=== PATIENT | female | born 1980 | race Caucasian/White ===

== ENCOUNTER → 2022-01-23 08:59 | Outpatient (BNVA) | payer MEDICAID, SELFPAY | PROVIDERS: PCP Nurse Practitioner Family; Visit Provider Internal Medicine Rheumatology | DX: M19.90 Unspecified osteoarthritis, unspecified site (principal); R76.8 Other specified abnormal immunological findings in serum; Z11.59 Encounter for screening for other viral diseases; Z79.899 Other long term (current) drug therapy; Z11.1 Encounter for screening for respiratory tuberculosis | CPT/HCPCS: 36415; 73130; 73630; 80076; 82306; 82550; 82565; 83735; 84132; 85025; 85651; 86140; 86160; 86162; 86200; 86235; 86255; 86376; 86431; 86480; 86704; 86800; 86803; 87340; 87522; 99204 ==

== ENCOUNTER 2022-02-15 10:36 | Oncology outpatient (recurring) (ONCR) | payer MEDICAID, SELFPAY ==
[2022-02-15 12:57] LABS: Basophils # 0.2 10^3/uL (0.0-0.1); Eosinophils # 0.2 10^3/uL (0.0-0.8); Eosinophils % 1.2 %; Hematocrit 40.9 % (37.0-47.0); Hemoglobin 13.5 g/dL (11.5-15.3); Lymphocytes # 6.2 10^3/uL (0.8-4.8); Lymphocytes % 39.6 %; Mean Corpuscular Hemoglobin 30.7 pg (28.0-34.0); Mean Platelet Volume 8.8 fL (7.4-10.4); Monocytes % 6.3 %; Neutrophils # 8.11 10^3/uL (1.8-7.7); Neutrophils % 51.6 %; Nucleated Red Blood Cells % 0 %; Platelet Count 587 10^3/cmm (130-400); Red Cell Distribution Width 14.8 % (12.1-15.1); White Blood Count 15.7 10^3/uL (4.0-10.0)
[2022-02-15 13:17] LABS: Slide Review Slide Review Perform
[2022-02-15 13:23] LABS: LAB Peripheral Smear Sent for Review
[2022-02-15 13:31] LABS: Alanine Aminotransferase 11 U/L (0-33); Albumin Level 3.8 g/dL (3.5-5.2); Alkaline Phosphatase 130 U/L (35-105); Anion Gap 14.1 (5-19); Aspartate Amino Transferase 22 U/L (0-32); Blood Urea Nitrogen 5 mg/dL (6-20); Calcium 8.4 mg/dL (8.5-10.5); Carbon Dioxide 23 mmol/L (22-29); Chloride 102 mmol/L (98-107); Globulin 2.9 g/dL (1.3-4.6); Glomerular Filtration Rate 92.2 mL/min (90-130); Glucose 97 mg/dL (65-115); Lactate Dehydrogenase 171 U/L (135-214); Osmolality Calculated 279 mOsm/kg (285-295); Potassium 3.1 mmol/L (3.5-5.1); Sodium 136 mmol/L (136-145); Total Bilirubin 0.2 mg/dL (0.15-1.2); Total Protein 6.7 g/dL (6.6-8.7); Vitamin B12 430 pg/mL (232-1245)
[2022-02-24 18:12] LABS: CALR Exon 9 Mutation NOT DETECTED (NOT DETECTED); CSF3R Exon 14/17 Mutation NOT DETECTED (NOT DETECTED); JAK2 Exon 12 Mutation NOT DETECTED (NOT DETECTED); JAK2 V617 Block Specimen ID NG; JAK2 V617 Clinical Indication NG; JAK2 V617 Mutation NOT DETECTED (NOT DETECTED); JAK2 V617 Specimen Source NG; MPL Exon 12 Mutation NOT DETECTED (NOT DETECTED)
== END 2022-03-09 23:59 | disposition home or self-care (01) ==
PROVIDERS: PCP Nurse Practitioner Family; Visit Provider Internal Medicine Medical Oncology
DX: D72.829 Elevated white blood cell count, unspecified (principal); D75.839 Thrombocytosis, unspecified; R53.83 Other fatigue
CPT/HCPCS: 36415; 80053; 81270; 82607; 83615; 84443; 85025; 88374

== ENCOUNTER 2022-03-14 12:26 | Oncology outpatient (recurring) (ONCR) | payer MEDICAID, SELFPAY ==
[2022-03-14 13:22] LABS: Basophils # 0.1 10^3/uL (0.0-0.1); Basophils % 0.4 %; Eosinophils % 0.3 %; Hematocrit 37.6 % (37.0-47.0); Hemoglobin 12.5 g/dL (11.5-15.3); Lymphocytes # 2.7 10^3/uL (0.8-4.8); Lymphocytes % 23.5 %; Mean Corpuscular HGB Conc 33.2 g/dL (30.0-36.0); Mean Corpuscular Volume 93.3 fl (81-99); Mean Platelet Volume 10.2 fL (7.4-10.4); Monocytes # 1.1 10^3/uL (0.2-0.9); Monocytes % 9.9 %; Neutrophils # 7.51 10^3/uL (1.8-7.7); Neutrophils % 65.6 %; Nucleated Red Blood Cells % 0 %; Platelet Count 277 10^3/cmm (130-400); Red Blood Count 4.03 10^6/uL (4.1-5.3); Red Cell Distribution Width 18.4 % (12.1-15.1); White Blood Count 11.5 10^3/uL (4.0-10.0)
[2022-03-14 13:25] LABS: Erythrocyte Sedimentation Rate 5 mm/hr (0-15)
[2022-03-14 13:42] LABS: Alanine Aminotransferase 8 U/L (0-33); Albumin Level 2.9 g/dL (3.5-5.2); Alkaline Phosphatase 266 U/L (35-105); Anion Gap 13.6 (5-19); Aspartate Amino Transferase 31 U/L (0-32); Blood Urea Nitrogen 6 mg/dL (6-20); Calcium 7.8 mg/dL (8.5-10.5); Carbon Dioxide 29 mmol/L (22-29); Chloride 98 mmol/L (98-107); Globulin 3.1 g/dL (1.3-4.6); Glomerular Filtration Rate 91.8 mL/min (90-130); Glucose 159 mg/dL (65-115); Magnesium 1.5 mg/dL (1.7-2.3); Osmolality Calculated 287 mOsm/kg (285-295); Sodium 138 mmol/L (136-145); Total Bilirubin 0.5 mg/dL (0.15-1.2)
[2022-03-14 13:47] LABS: Potassium 2.6 mmol/L (3.5-5.1)
[2022-03-14 14:32] LABS: LAB Peripheral Smear Sent for Review
== END 2022-04-09 23:59 | disposition home or self-care (01) ==
LOC: ONCMED 12:28
PROVIDERS: PCP Registered Nurse; Visit Provider Internal Medicine Medical Oncology
DX: D72.829 Elevated white blood cell count, unspecified (principal); D75.839 Thrombocytosis, unspecified; R53.83 Other fatigue
CPT/HCPCS: 36415; 80053; 83735; 85025; 85651; 86140

== ENCOUNTER 2022-07-27 07:11 | Day surgery (SDC) | payer MEDICAID, SELFPAY ==
[2022-07-03 11:29] VITALS: BMI 18.8
[2022-07-27 07:34] LABS: OR HCG Qualitative Urine Negative (Negative)
[2022-07-27] MEDS: sodium chloride 0.9% 1,000 ML 30 ML IV (07:38)
--- NOTE | 2022-07-27 07:59 | ANES.PREANE2 ---
Pre-Anesthetic Assessment Height/Weight: Height 1.63 m Weight 49.895 kg Preop Diagnosis: Rectal Mass on CT Operation Date: 07/27/22 09:00 Proposed Procedures p Colonoscopy 08551,Z80.0,Z12.11(Not Applicable) - Dustin Banks DO Familial anesthetic complications: none Was Beta Dexter taken within 24 hours: N/A Was Clonidine taken within 24 hours: N/A Last intake: Intake Last Liquid Date 07/26/22 Last Liquid Time 23:45 Last Solid Date 07/25/22 Last Solid Time 21:30 Social Alcohol (irregular, binging reported at times and periods of sobriety up to 6 months.) and Tobacco (25 years 1ppd.) Exam alert, oriented x 3 and clear to auscultation bilaterally Airway Submandibular: within normal limits Cervical ROM: within normal limits Mallampati: Class I Dentition: chipped and loose Comments: Comments: Very poor dentition. Pulmonary Cough (productive cough.) and Sleep Apnea (sleep test pending.) CV/HEM Congestive Heart Failure (Patient reported intermittent fluid on legs no swelling noted today.), Hypertension (With anxiety per patient- denies HTN. Patient BP elevated today.) and Murmur (mild-moderate AR & MR per patient.) None reported Hepatic fatty liver. GI Gastroesophageal Reflux Disease umbilical hernia, symptomatic cholelithiasis - recommended removal per surgeon. Metabolic None reported thrombocytosis, Leukocytosis Musc/skel Osteoarthritis/DJD and Rheumatoid Arthritis Neuropsych Anxiety, Depression and Transient Ischemic Attack (2014) Anesthetic Plan ASA status: 3 Anesthesia: MAC Medications/Allergies Home Medications Medication Instructions Recorded Confirmed Last Taken Type potassium chloride 20 mEq 20 meq PO BID 04/20/21 07/24/22 07/24/22 History tablet,extended release hydrocodone 5 mg-acetaminophen 325 1 tab PO BID PRN Pain 05/22/22 07/27/22 Unknown History mg tablet Allergies Allergy/AdvReac Type Severity Reaction Status Date / Time oxycodone [From Percocet] AdvReac Severe violent Verified 07/27/22 07:28 puking, Current Medications Generic Name Dose Route Start Last Admin Trade Name Freq PRN Reason Stop Dose Admin Sodium Chloride 1,000 mls @ 30 mls/hr 07/27/22 07:30 07/27/22 07:38 Sodium Chloride 0.9% IV 07/28/22 07:29 30 mls/hr .Q24H JEAN PIERRE Administration PFSH Anesthesia Medical History (Updated 07/27/22 @ 07:57 by Carmen Connelly CRNA) Anxiety and depression Congestive heart failure GERD (gastroesophageal reflux disease) Heart valve disorder History of low potassium Hypokalemia Inflammatory arthritis Positive GARY (antinuclear antibody) Surgical History History of tympanostomy Right ear x2 Family History Other CAD (coronary artery disease) Cancer Chronic kidney disease (CKD) Diabetes Hypertension Lung disease Stroke Denies family history of Family history of premature coronary artery disease Social History Smoking and tobacco status: never smoked Data Anesthesia Cardiac Studies: No Data to Display
[2022-07-27 08:29] LABS: Anion Gap 15.7 (5-19); Blood Urea Nitrogen 2 mg/dL (6-20); Calcium 8.3 mg/dL (8.5-10.5); Carbon Dioxide 23 mmol/L (22-29); Chloride 104 mmol/L (98-107); Glomerular Filtration Rate 135.3 mL/min (90-130); Glucose 87 mg/dL (65-115); Osmolality Calculated 286 mOsm/kg (285-295); Sodium 140 mmol/L (136-145)
[2022-07-27 08:37] LABS: Potassium 2.7 mmol/L (3.5-5.1)
== END 2022-07-27 09:03 | disposition home or self-care (01) ==
LOC: GILAB 07:13
PROVIDERS: Anesthesiology; PCP Family Medicine; Visit Provider Surgery
PROC: 0DJD8ZZ Inspection of Lower Intestinal Tract, Via Natural or Artificial Opening Endoscopic (ICD-10-PCS; CPT 45378; principal; 2022-07-27 09:00)
DX: Z53.9 Procedure and treatment not carried out, unspecified reason (principal)
CPT/HCPCS: 80048; 81025; 84703; J7030

== ENCOUNTER → 2022-10-17 14:31 | Outpatient (BNVA) | payer MEDICAID, SELFPAY | PROVIDERS: PCP Family Medicine; Referring Provider Registered Nurse; Visit Provider Specialist | DX: M20.001 Unspecified deformity of right finger(s) (principal) | CPT/HCPCS: 73130 ==

== ENCOUNTER 2023-03-21 08:04 | Outpatient (CLI) | payer MEDICAID, SELFPAY ==
--- NOTE | 2023-03-21 08:12 | US_ITS ---
WS: [email or web address] US pelvic complete* [id number] HISTORY: R OVARIAN CYST COMPARISON: None available. Patient refused transvaginal imaging. Uterus: 6.4 cm x 4.1 cm x 3.4 cm. Normal size anteverted uterus. No fibroid or mass. There is a small amount of free fluid in the pelvis. This is more fluid than physiologic. Fluid surro unds the uterus and extends into the adnexa. Endometrium: 0.5 cm. As visualized on transabdominal imaging, normal. Right ovary: RIGHT ovary is not identified. Left ovary: 3.3 cm x 3.1 cm x 3.5 cm. Ovary contains several follicles. The largest is 2.4 x 2.3 x 2. 6 cm. Normal vascularity of the visualized ovary. Small, physiologic amount of free fluid in the cul-de-sac. IMPRESSION: 1. Limited visualization of the pelvic structures. Patient refused transvaginal imaging. 2. Normal uterus and endometrium. 3. Free fluid in the pelvis, greater than physiologic. 4. Multiple small follicles associated with the LEFT ovary. 5. RIGHT ovary is not identified. Note: Etiology of the ascites needs to be determined. Without transvaginal imaging there is limited e valuation of the adnexa in each ovary.
== END 2023-03-21 08:05 | disposition home or self-care (01) ==
LOC: RAD 08:06
PROVIDERS: PCP Family Medicine; Visit Provider Family Medicine
DX: N83.201 Unspecified ovarian cyst, right side (principal)
CPT/HCPCS: 76856

== ENCOUNTER 2023-04-10 09:11 | Day surgery (SDC) | payer MEDICAID, SELFPAY ==
[2023-04-08 11:29] LABS: Anion Gap 14.5 (5-19); Blood Urea Nitrogen 7 mg/dL (6-20); Calcium 8.9 mg/dL (8.5-10.5); Carbon Dioxide 20 mmol/L (22-29); Chloride 108 mmol/L (98-107); Glomerular Filtration Rate 91.3 mL/min (90-130); Glucose 81 mg/dL (65-115); Osmolality Calculated 285 mOsm/kg (285-295); Potassium 3.5 mmol/L (3.5-5.1); Sodium 139 mmol/L (136-145)
[2023-04-10 09:57] VITALS: BMI 18.3
[2023-04-10 10:04] VITALS: BP 150/87; PULSE 84; RESP 16; TEMP 36.4; O2SAT 100
[2023-04-10] MEDS: sodium chloride 0.9% 1,000 ML 30 ML IV (10:05)
--- NOTE | 2023-04-10 10:37 | PM.HP ---
Providers/Chief Complaint Primary Care Provider: Augusto Gordon Chief Complaint: Z12.11 History of Present Illness Heide Curtis is a 43 year old female Review of Systems General: Reports: 10 or more systems reviewed and unremarkable except in HPI and below Medications/Allergies Home Medications Medication Instructions Recorded Confirmed Last Taken Type potassium chloride 20 mEq 20 meq PO QID 04/20/21 04/10/23 04/09/23 History tablet,extended release prednisone 5 mg tablet 5 mg PO DAILY #90 tabs 03/04/23 04/10/23 04/09/23 Rx gabapentin 100 mg capsule 100 mg PO DAILY 03/05/23 04/10/23 04/09/23 History spironolactone 50 mg tablet 100 mg PO DAILY 03/05/23 04/10/23 04/09/23 History furosemide 40 mg tablet 40 mg PO DAILY 04/08/23 04/10/23 04/09/23 History prednisone 20 mg tablet 20 mg PO DAILY PRN Pain 04/08/23 04/10/23 04/09/23 History Allergies Allergy/AdvReac Type Severity Reaction Status Date / Time oxycodone [From Percocet] AdvReac Severe violent Verified 04/10/23 09:56 hannah PFSH Acute PFSH: Medical History Anxiety and depression Cellulitis of left foot Congestive heart failure GERD (gastroesophageal reflux disease) H/O hypokalemia Heart valve disorder History of low potassium Hypokalemia Inflammatory arthritis Positive GARY (antinuclear antibody) Surgical History History of tympanostomy Right ear x2 Family History Other CAD (coronary artery disease) Cancer Chronic kidney disease (CKD) Diabetes Hypertension Lung disease Stroke Denies family history of Family history of premature coronary artery disease Social History Smoking and tobacco/nicotine status: never used tobacco/nicotine Female Reproductive History: Date of last menstrual period: 04/01/23 Vitals/I&O/Wt Last Vital Signs Temp 97.6 F 04/10/23 10:04 Pulse 84 04/10/23 10:04 Resp 16 04/10/23 10:04 BP 150/87 11/01/23 10:04 Pulse Ox 100 04/10/23 10:04 O2 Del Method Room Air 04/10/23 10:04 Weight last 48 hrs Weight 107 lb Data 04/08/23 10:24 A&P Assessment and plan (1) Colon cancer screening: (2) Family history of colon cancer in mother: Plan A sigmoid colon mass was seen on outside imaging over 1 year ago. Patient has not followed up to get the colonoscopy completed until now. Colonoscopy Attestations Medical Necessity Statement*: Home Coding Level of Care Code Acute Code for Chg Fwd Diagnoses Colon cancer screening Z12.11 Family history of colon cancer in mother Z80.0
[2023-04-10 11:24] VITALS: BP 114/72; PULSE 80; RESP 16; TEMP 36.4; O2SAT 99
[2023-04-10 11:37] VITALS: BP 116/89; PULSE 86; RESP 18; O2SAT 100
[2023-04-10 11:54] VITALS: BP 120/88; PULSE 78; RESP 18; O2SAT 100
--- NOTE | 2023-04-10 13:14 | ANE.PACU2 ---
Inpatient post-anesthesia follow up: Airway intact: Yes Vital signs: Temperature 97.6 F Pulse Rate 78 Respiratory Rate 18 Blood Pressure 120/88 Pulse Oximetry 100 Oxygen Delivery Me thod Room Air Oxygen Flow Rate Fraction of Inspir ed Oxygen Hydration adequate: Yes Nausea and vomiting: No Pain level: 1 Mental status: Baseline
== END 2023-04-10 12:00 | disposition home or self-care (01) ==
PROVIDERS: Anesthesiology; PCP Family Medicine; Visit Provider Surgery
PROC: 0DJD8ZZ Inspection of Lower Intestinal Tract, Via Natural or Artificial Opening Endoscopic (ICD-10-PCS; CPT 45378; principal; 2023-04-10 11:30)
DX: Z12.11 Encounter for screening for malignant neoplasm of colon (principal); D12.5 Benign neoplasm of sigmoid colon; D12.8 Benign neoplasm of rectum; I50.9 Heart failure, unspecified
CPT/HCPCS: 45385; 80048; 81025; 88305; J2371; J2704; J7030

== ENCOUNTER 2023-05-08 08:13 | Oncology outpatient (recurring) (ONCR) | payer MEDICAID, SELFPAY ==
[2023-05-08 09:11] LABS: Basophils # 0.2 10^3/uL (0.0-0.1); Basophils % 0.9 %; Eosinophils # 0.3 10^3/uL (0.0-0.8); Eosinophils % 1.4 %; Hematocrit 38.8 % (36-47); Lymphocytes # 4.8 10^3/uL (0.8-4.8); Lymphocytes % 24.3 %; Mean Corpuscular HGB Conc 31.4 g/dL (30-55); Mean Corpuscular Hemoglobin 25.6 pg (27-33); Mean Corpuscular Volume 81.5 fl (85-98); Mean Platelet Volume 9.2 fL (7.4-10.4); Monocytes # 1.7 10^3/uL (0.2-0.9); Monocytes % 8.7 %; Neutrophils # 12.54 10^3/uL (1.8-7.7); Neutrophils % 64.2 %; Nucleated Red Blood Cells % 0 %; Platelet Count 492 10^3/cmm (157-399); Red Blood Count 4.76 10^6/uL (3.85-5.65); Red Cell Distribution Width 14.1 % (12.1-15.1); White Blood Count 19.56 10^3/uL (3.29-11.43)
[2023-05-08 09:39] LABS: Carcinoembryonic Antigen 2.9 ng/mL (0.0-4.7)
[2023-05-08 09:50] LABS: Alanine Aminotransferase 7 U/L (0-33); Albumin Level 4.1 g/dL (3.5-5.2); Alkaline Phosphatase 126 U/L (35-105); Anion Gap 16.4 (5-19); Aspartate Amino Transferase 19 U/L (0-32); Blood Urea Nitrogen 9 mg/dL (6-20); Calcium 9.6 mg/dL (8.5-10.5); Carbon Dioxide 23 mmol/L (22-29); Chloride 103 mmol/L (98-107); Globulin 3.8 g/dL (1.3-4.6); Glomerular Filtration Rate 78.3 mL/min (90-130); Glucose 99 mg/dL (65-115); Osmolality Calculated 287 mOsm/kg (285-295); Potassium 3.4 mmol/L (3.5-5.1); Sodium 139 mmol/L (136-145); Total Bilirubin 0.5 mg/dL (0.15-1.2); Total Protein 7.9 g/dL (6.6-8.7)
== END 2023-05-09 23:59 | disposition home or self-care (01) ==
PROVIDERS: PCP Family Medicine; Visit Provider Internal Medicine Medical Oncology
DX: C20 Malignant neoplasm of rectum (principal); D64.9 Anemia, unspecified; Z79.899 Other long term (current) drug therapy
CPT/HCPCS: 36415; 80053; 82378; 85025

== ENCOUNTER 2023-05-31 11:16 | Oncology outpatient (recurring) (ONCR) | payer MEDICAID, SELFPAY ==
[2023-05-31 11:53] VITALS: BP 121/78; PULSE 89; RESP 16; TEMP 36.8; O2SAT 100
[2023-05-31] MEDS: iohexol 350 mg/mL 500 mL Btl (per mL) PO (12:12)
--- NOTE | 2023-05-31 12:30 | CT_ITS ---
WS: [email or web address] CT CHEST, ABDOMEN, AND PELVIS TECHNIQUE: Contrast-enhanced CT of the chest, abdomen, and pelvis with coronal and sagittal reformatt ed images. CLINICAL INFORMATION: staging COMPARISON: Outside CT abdomen pelvis 04/22/2022 DLP: 483.[address] scans at [facility] use at least one of these dose optimization techniques: automated e xposure control; mA and/or kV adjustment per patient size (includes targeted exams where dose is matc hed to clinical indication); or iterative reconstruction. CT CHEST: Lungs are well aerated. No acute pulmonary infiltrates. No suspicious pulmonary parenchymal opacities . Normal caliber thoracic aorta. A few prominent AP window lymph nodes at the upper limits of normal measuring 8 to 9 mm. Otherwise no mediastinal or hilar lymphadenopathy. Numerous normal sized slightl y prominent axillary lymph nodes within normal limits. CT ABDOMEN AND PELVIS: Gallbladder is contracted. Cholelithiasis. Hepatomegaly with heterogeneous parenchymal enhancement an d cirrhotic configuration to the liver. Recommend correlation with liver function tests. Mild splenom egaly. Developing varices and portosystemic collaterals upper abdomen suggesting portal venous hypert ension. Portal vein and splenic vein are patent. Normal pancreatic parenchymal enhancement. Adrenal glands are normal. Normal renal parenchymal enhancement. No hydronephrosis. Normal caliber ab dominal aorta. Mild aortic calcification. Previously described sigmoid mass has been resected or neda olga. No evidence of visualized sigmoid or rectal mass today. Bilateral ovarian cysts RIGHT greater th an LEFT. RIGHT ovarian cyst measures 2.0 cm. No evidence of high-grade small or large bowel obstructi on. IMPRESSION: 1. Prominent AP window lymph nodes measuring 8 to 9 mm at the upper limits of normal. Otherwise no m ediastinal or hilar lymphadenopathy. These may be reactive but indeterminant and recommend CT chest 3 -month follow-up. These are partially visualized on prior CT neck 02/17/2022 and are similar in appea liliana 2. No acute pulmonary infiltrates. 3. Previously described sigmoid lesion is not seen today likely resected or treated. No evidence of recurrent sigmoid mass or lesion. 4. Hepatomegaly with cirrhotic configuration to the liver and diffuse heterogeneous enhancement. Rec ommend correlation with liver function tests. 5. Mild splenomegaly with evidence of portal venous hypertension. 6. Gallbladder is contracted. Cholelithiasis. 7. No adenopathy in the abdomen or pelvis. 8. Lobulated RIGHT ovarian cyst measuring 1.9 cm.
[2023-05-31] MEDS: iohexol 350 mg/mL 500 mL Btl (per mL) IV (13:16)
== END 2023-06-09 23:59 | disposition home or self-care (01) ==
PROVIDERS: PCP Family Medicine; Visit Provider Internal Medicine Medical Oncology
DX: C20 Malignant neoplasm of rectum (principal); R16.1 Splenomegaly, not elsewhere classified; K76.6 Portal hypertension; K80.20 Calculus of gallbladder without cholecystitis without obstruction; N83.201 Unspecified ovarian cyst, right side
CPT/HCPCS: 36415; 71260; 74177; Q9967

== ENCOUNTER → 2023-08-21 15:26 | Outpatient (BNVA) | payer MEDICAID, SELFPAY | PROVIDERS: PCP Family Medicine; Visit Provider Internal Medicine Rheumatology | DX: M54.9 Dorsalgia, unspecified; M54.6 Pain in thoracic spine | CPT/HCPCS: 72072; 72100 ==

== ENCOUNTER 2023-08-29 10:52 | Outpatient (CLI) | payer MEDICAID, SELFPAY ==
--- NOTE | 2023-08-29 11:00 | CTR_ITS ---
PROCEDURE INFORMATION: Exam: CT Chest With Contrast; Diagnostic Exam date and time: 08/29/2023 11:20 AM Age: 43 years old Clinical indication: Abnormal findings; Abnormal radiologic exam of lung or chest; Additional info: Abnormal chest CT TECHNIQUE: Imaging protocol: Diagnostic computed tomography of the chest with contrast. Radiation optimization: All CT scans at this facility use at least one of these dose optimization techniques: automated exposure control; mA and/or kV adjustment per patient size (includes targeted exams where dose is matched to clinical indication); or iterative reconstruction. Contrast material: OMNIPAQUE 350; Contrast volume: 95 ml; Contrast route: INTRAVENOUS (IV); COMPARISON: CT chest abdpel w/*[id number] 05/31/2023 1:13 PM RADIATION DOSE METRICS: Total DLP (mGy-cm): 211.15 FINDINGS: Lungs: Unremarkable. No consolidation. No masses. Pleural spaces: Unremarkable. No pneumothorax. No pleural effusion. Heart: Unremarkable. No cardiomegaly. No pericardial effusion. Esophagus: Unremarkable thoracic esophagus. Lymph nodes: Mediastinal lymph nodes are overall stable to decreased in size from the comparison. Negative for lymphadenopathy. Largest node in prevascular space measures 1.2 cm x 0.8 cm; previous 1.2 cm x 0.8 cm. Other smaller nodes are clearly slightly smaller than prior. Negative for supraclavicular lymphadenopathy. Negative for axillary lymphadenopathy. Vasculature: Unremarkable. No aortic aneurysm. Bones/joints: Unremarkable. No acute fracture. Soft tissues: Unremarkable. CT/CT chest w con* [id number] IMPRESSION: 1. Negative CT chest. 2. No acute chest pathology. 3. Stable to slightly decreased size mediastinal lymph nodes.
[2023-08-29] MEDS: iohexol 350 mg/mL 500 mL Btl (per mL) IV (11:23)
== END 2023-08-29 10:53 | disposition home or self-care (01) ==
LOC: RAD 10:53
PROVIDERS: PCP Family Medicine; Visit Provider Internal Medicine Medical Oncology
DX: R93.89 Abnormal findings on diagnostic imaging of other specified body structures (principal)
CPT/HCPCS: 71260; Q9967

== ENCOUNTER 2023-09-04 11:47 | Oncology outpatient (recurring) (ONCR) | payer MEDICAID, SELFPAY ==
[2023-09-04 12:07] LABS: Basophils # 0.1 10^3/uL (0.0-0.1); Basophils % 0.8 %; Eosinophils # 0.1 10^3/uL (0.0-0.8); Eosinophils % 0.7 %; Hematocrit 43.4 % (36-47); Lymphocytes # 2.2 10^3/uL (0.8-4.8); Lymphocytes % 16.4 %; Mean Corpuscular Hemoglobin 25.4 pg (27-33); Mean Corpuscular Volume 79.3 fl (85-98); Mean Platelet Volume 9.7 fL (7.4-10.4); Monocytes # 0.7 10^3/uL (0.2-0.9); Monocytes % 5.4 %; Neutrophils # 10.45 10^3/uL (1.8-7.7); Neutrophils % 76.3 %; Nucleated Red Blood Cells % 0 %; Platelet Count 337 10^3/cmm (157-399); Red Blood Count 5.47 10^6/uL (3.85-5.65); Red Cell Distribution Width 23.4 % (12.1-15.1); White Blood Count 13.68 10^3/uL (3.29-11.43)
[2023-09-04 12:28] LABS: Alanine Aminotransferase 10 U/L (0-33); Albumin Level 4.1 g/dL (3.5-5.2); Alkaline Phosphatase 61 U/L (35-105); Anion Gap 14.6 (5-19); Aspartate Amino Transferase 16 U/L (0-32); Blood Urea Nitrogen 10 mg/dL (6-20); Calcium 9.1 mg/dL (8.5-10.5); Carbon Dioxide 24 mmol/L (22-29); Chloride 106 mmol/L (98-107); Ferritin 498 ng/mL (15-150); Globulin 2.6 g/dL (1.3-4.6); Glomerular Filtration Rate 60.5 mL/min (90-130); Glucose 88 mg/dL (65-115); Iron 83 ug/dL (37-145); Osmolality Calculated 288 mOsm/kg (285-295); Percent Saturation 24.8 % (20-50); Potassium 4.6 mmol/L (3.5-5.1); Sodium 140 mmol/L (136-145); Total Bilirubin 0.6 mg/dL (0.15-1.2); Total Iron Binding Capacity 334 mcg/dl; Total Protein 6.7 g/dL (6.6-8.7); Unsaturated Iron Binding 251 ug/dL (112-347)
== END 2023-09-08 23:59 | disposition home or self-care (01) ==
PROVIDERS: PCP Family Medicine; Visit Provider Internal Medicine Medical Oncology
DX: C20 Malignant neoplasm of rectum (principal); D50.9 Iron deficiency anemia, unspecified
CPT/HCPCS: 36415; 80053; 82378; 82728; 83540; 83550; 85025

== ENCOUNTER 2023-12-02 09:28 | Oncology outpatient (recurring) (ONCR) | payer MEDICAID, SELFPAY ==
[2023-12-02 10:02] LABS: Basophils # 0.1 10^3/uL (0.0-0.1); Basophils % 0.9 %; Eosinophils # 0.1 10^3/uL (0.0-0.8); Eosinophils % 0.9 %; Hematocrit 45.6 % (36-47); Lymphocytes # 2.9 10^3/uL (0.8-4.8); Lymphocytes % 24.4 %; Mean Corpuscular HGB Conc 35.3 g/dL (30-55); Mean Corpuscular Hemoglobin 33.3 pg (27-33); Mean Corpuscular Volume 94.2 fl (85-98); Mean Platelet Volume 10.7 fL (7.4-10.4); Monocytes % 8.3 %; Neutrophils # 7.64 10^3/uL (1.8-7.7); Neutrophils % 65.1 %; Nucleated Red Blood Cells % 0 %; Platelet Count 150 10^3/cmm (157-399); Red Blood Count 4.84 10^6/uL (3.85-5.65); Red Cell Distribution Width 14.5 % (12.1-15.1); White Blood Count 11.75 10^3/uL (3.29-11.43)
[2023-12-02 10:24] LABS: Alanine Aminotransferase 20 U/L (0-33); Albumin Level 3.7 g/dL (3.5-5.2); Alkaline Phosphatase 340 U/L (35-105); Anion Gap 17.5 (5-19); Aspartate Amino Transferase 63 U/L (0-32); Blood Urea Nitrogen 14 mg/dL (6-20); Calcium 8.4 mg/dL (8.5-10.5); Carbon Dioxide 28 mmol/L (22-29); Chloride 93 mmol/L (98-107); Globulin 3.4 g/dL (1.3-4.6); Glomerular Filtration Rate 54.2 mL/min (90-130); Glucose 94 mg/dL (65-115); Osmolality Calculated 282 mOsm/kg (285-295); Sodium 136 mmol/L (136-145); Total Bilirubin 2.8 mg/dL (0.15-1.2); Total Protein 7.1 g/dL (6.6-8.7)
[2023-12-02 10:46] LABS: Potassium 2.5 mmol/L (3.5-5.1)
== END 2023-12-08 23:59 | disposition home or self-care (01) ==
PROVIDERS: Nurse Practitioner Family; PCP Family Medicine; Visit Provider Internal Medicine Medical Oncology
DX: C20 Malignant neoplasm of rectum (principal)
CPT/HCPCS: 36415; 80053; 85025

== ENCOUNTER 2024-07-27 10:41 | Day surgery (SDC) | payer MEDICAID, SELFPAY ==
[2024-07-27 11:15] VITALS: BP 132/79; PULSE 95; RESP 18; TEMP 36.8; O2SAT 95; BMI 21.1
--- NOTE | 2024-07-27 11:54 | US_ITS ---
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 Procedure Informed consent: The risks, benefits, and alternatives of the procedure were discussed with the patient. Verbal and written consent was obtained. Timeout: A timeout was performed to confirm the correct patient, procedure, and site. Preparation: A suitable skin site was identified. The patient was prepped and draped in usual sterile fashion. Lidocaine 1% was used for local anesthesia. Catheter: 4 Bruneian One-step Yueh catheter. Side: RIGHT lower quadrant. Fluid Volume: 5300 ml Color: Clear yellow DISPOSITION: Discarded safely. Complications: None. Patient disposition: Discharged from the department in stable condition. US/US paracentesis abd w [id number] IMPRESSION: Uncomplicated ultrasound-guided paracentesis. Removal of 5300 cc
[2024-07-27 13:03] VITALS: BP 115/78; PULSE 86; RESP 17; O2SAT 100
[2024-07-27 13:07] VITALS: BP 124/75
== END 2024-07-27 13:08 | disposition home or self-care (01) ==
PROVIDERS: Radiology Neuroradiology; PCP Family Medicine; Visit Provider Nurse Practitioner Family
PROC: (CPT 49082; principal; 2024-07-27 11:30)
DX: K70.31 Alcoholic cirrhosis of liver with ascites (principal)
CPT/HCPCS: 49083

== ENCOUNTER 2024-08-13 13:55 | Oncology outpatient (recurring) (ONCR) | payer MEDICAID, SELFPAY ==
[2024-08-13 14:42] LABS: Basophils # 0.1 10^3/uL (0.0-0.1); Basophils % 0.7 %; Eosinophils # 0.1 10^3/uL (0.0-0.8); Eosinophils % 1.1 %; Hematocrit 33.2 % (36-47); Lymphocytes # 2.9 10^3/uL (0.8-4.8); Lymphocytes % 22.5 %; Mean Corpuscular HGB Conc 33.7 g/dL (30-55); Mean Corpuscular Hemoglobin 31.7 pg (27-33); Mean Corpuscular Volume 94.1 fl (85-98); Mean Platelet Volume 9.2 fL (7.4-10.4); Monocytes # 1.4 10^3/uL (0.2-0.9); Monocytes % 10.5 %; Neutrophils % 64.8 %; Nucleated Red Blood Cells % 0 %; Platelet Count 283 10^3/cmm (157-399); Red Blood Count 3.53 10^6/uL (3.85-5.65); Red Cell Distribution Width 12.5 % (12.1-15.1); White Blood Count 12.96 10^3/uL (3.29-11.43)
[2024-08-13 15:03] LABS: Alanine Aminotransferase 6 U/L (0-33); Albumin Level 2.8 g/dL (3.5-5.2); Alkaline Phosphatase 159 U/L (35-105); Anion Gap 10.4 (5-19); Aspartate Amino Transferase 26 U/L (0-32); Blood Urea Nitrogen 7 mg/dL (6-20); Calcium 8.2 mg/dL (8.5-10.5); Carbon Dioxide 25 mmol/L (22-29); Chloride 103 mmol/L (98-107); Globulin 3.1 g/dL (1.3-4.6); Glucose 90 mg/dL (65-115); Osmolality Calculated 278 mOsm/kg (285-295); Potassium 3.4 mmol/L (3.5-5.1); Sodium 135 mmol/L (136-145); Total Bilirubin 1.6 mg/dL (0.15-1.2); Total Protein 5.9 g/dL (6.6-8.7)
== END 2024-09-07 23:59 | disposition home or self-care (01) ==
PROVIDERS: Internal Medicine; PCP Family Medicine; Visit Provider Internal Medicine Medical Oncology
DX: C20 Malignant neoplasm of rectum (principal)
CPT/HCPCS: 36415; 80053; 85025

== ENCOUNTER 2024-08-27 11:17 | Day surgery (SDC) | payer MEDICAID, SELFPAY ==
[2024-08-27 11:30] VITALS: BP 124/83; PULSE 75; RESP 18; TEMP 36.2; O2SAT 100
--- NOTE | 2024-08-27 11:44 | US_ITS ---
WS: [email or web address] ULTRASOUND-GUIDED PARACENTESIS CLINICAL INFORMATION: Ascites COMPARISON: None. FINDINGS: Four-quadrant ultrasound for paracentesis. Only minimal trace ascites is visualized in the lower quadrants. Insufficient fluid for paracentesis. US/US paracentesis abd w [id number] IMPRESSION: See above
== END 2024-08-27 12:35 | disposition home or self-care (01) ==
LOC: GILAB 11:18
PROVIDERS: Radiology Neuroradiology; PCP Family Medicine; Visit Provider Nurse Practitioner Family
DX: R18.8 Other ascites (principal)
CPT/HCPCS: 49083

== ENCOUNTER → 2024-10-08 15:02 | Outpatient (BNVA) | payer MEDICAID, SELFPAY | PROVIDERS: PCP Family Medicine; Visit Provider Orthopaedic Surgery | DX: M54.50 Low back pain, unspecified (principal) | CPT/HCPCS: 72110 ==

== ENCOUNTER 2024-11-06 13:29 | Oncology outpatient (recurring) (ONCR) | payer MEDICAID, SELFPAY ==
--- NOTE | 2024-11-06 13:30 | CTR_ITS ---
PROCEDURE INFORMATION: Exam: CT Chest With Contrast; Diagnostic Exam date and time: 11/06/2024 1:54 PM Age: 44 years old Clinical indication: Abnormal findings; Abnormal diagnostic tests; Other: Thrombocytosis, leukocytosis; Prior surgery; Surgery date: 6+ months; Surgery type: Not specified; HX of colon, rectal and skin cancer TECHNIQUE: Imaging protocol: Diagnostic computed tomography of the chest with contrast. Radiation optimization: All CT scans at this facility use at least one of these dose optimization techniques: automated exposure control; mA and/or kV adjustment per patient size (includes targeted exams where dose is matched to clinical indication); or iterative reconstruction. Contrast material: [id number]; Contrast volume: 100 ml; Contrast route: INTRAVENOUS (IV); COMPARISON: CT chest w con* [id number] 08/29/2023 11:20 AM RADIATION DOSE METRICS: Total DLP (mGy-cm): 225.05 FINDINGS: Thyroid: No significant thyroid pathology. Lungs: No significant active pulmonary pathology. Pleural spaces: No pleural effusion. Heart: No significant pathology. Coronary arteries: No coronary artery calcification evident. Lymph nodes: All visualized thoracic lymph nodes are within normal limits by size criteria. Previously described 8 mm short axis prevascular lymph node is within normal limits by size criteria. No evidence of hilar or axillary lymphadenopathy. Vasculature: See Intraperitoneal space finding. Liver: Features of hepatic cirrhosis again noted. Intraperitoneal space: Varices again seen including gastrohepatic ligament, omentum and periumbilical venous plexus. Bones/joints: No significant bony pathology. Soft tissues: Unremarkable. CT/CT chest w con* [id number] IMPRESSION: 1. No significant chest pathology. 2. Hepatic cirrhosis with upper abdominal varices again noted.
[2024-11-06] MEDS: iohexol 350 mg/mL 500 mL Btl (per mL) IV (14:00)
== END 2024-11-07 23:59 | disposition home or self-care (01) ==
LOC: RAD 13:30 → ONCMED 11-09 09:52
PROVIDERS: PCP Family Medicine; Visit Provider Internal Medicine Medical Oncology
DX: D75.839 Thrombocytosis, unspecified (principal); D72.829 Elevated white blood cell count, unspecified; K74.60 Unspecified cirrhosis of liver; I86.8 Varicose veins of other specified sites
CPT/HCPCS: 71260

== ENCOUNTER 2024-11-13 08:30 | Oncology outpatient (recurring) (ONCR) | payer MEDICAID, SELFPAY ==
[2024-11-10 12:39] LABS: Basophils # 0.1 10^3/uL (0.0-0.1); Basophils % 0.8 %; Eosinophils # 0.2 10^3/uL (0.0-0.8); Eosinophils % 1.3 %; Hematocrit 40.1 % (36-47); Lymphocytes # 3.2 10^3/uL (0.8-4.8); Lymphocytes % 23.1 %; Mean Corpuscular HGB Conc 33.7 g/dL (30-55); Mean Corpuscular Hemoglobin 30.5 pg (27-33); Mean Corpuscular Volume 90.7 fl (85-98); Mean Platelet Volume 9.8 fL (7.4-10.4); Monocytes # 1.6 10^3/uL (0.2-0.9); Monocytes % 11.4 %; Neutrophils # 8.55 10^3/uL (1.8-7.7); Neutrophils % 62.9 %; Nucleated Red Blood Cells % 0 %; Platelet Count 214 10^3/cmm (157-399); Red Blood Count 4.42 10^6/uL (3.85-5.65); White Blood Count 13.61 10^3/uL (3.29-11.43)
[2024-11-10 13:02] LABS: Alanine Aminotransferase 11 U/L (0-33); Albumin Level 3.4 g/dL (3.5-5.2); Alkaline Phosphatase 122 U/L (35-105); Aspartate Amino Transferase 19 U/L (0-32); Blood Urea Nitrogen 15 mg/dL (6-20); Calcium 9.1 mg/dL (8.5-10.5); Carbon Dioxide 22 mmol/L (22-29); Chloride 105 mmol/L (98-107); Ferritin 112 ng/mL (15-150); Globulin 2.5 g/dL (1.3-4.6); Glucose 99 mg/dL (65-115); Iron 66 ug/dL (37-145); Osmolality Calculated 287 mOsm/kg (285-295); Percent Saturation 20.9 % (20-50); Sodium 138 mmol/L (136-145); Total Bilirubin 0.8 mg/dL (0.15-1.2); Total Iron Binding Capacity 315 mcg/dl; Total Protein 5.9 g/dL (6.6-8.7); Unsaturated Iron Binding 249 ug/dL (112-347)
[2024-11-10 13:42] LABS: Carcinoembryonic Antigen 2.5 ng/mL (0.0-4.7)
--- NOTE | 2024-11-13 08:31 | US_ITS ---
WS: [email or web address] Complete ABDOMINAL ULTRASOUND HISTORY: RECTAL ADENOCARCINOMA COMPARISON: None available. Liver: 15.5 cm in length. Low normal size liver. Liver surface is very nodular and irregular. Coarse echotexture but no mass or intrahepatic duct dilatation. Portal Vein: Normal hepatopetal flow with monophasic waveform. Gallbladder: Very mild gallbladder wall thickening with a small amount of adjacent fluid. Cholelithiasis without acute cholecystitis. CBD: 0.3 cm Pancreas: Normal size and echogenicity. Right kidney: 9.6 cm x 4.6 x 4.9 cm. Cortex:1.1 cm. Normal size and echogenicity. No hydronephrosis or mass. Left kidney: 9.2 cm x 4.4 cm x 4.1 cm. Cortex: 1.0 cm. Normal size and echogenicity. No hydronephrosis or mass. Spleen: 12.2 cm. Normal size and echogenicity. Aorta and IVC: Unremarkable abdominal aorta and IVC. US/US abdomen complete* [id number] Impression: 1. Cholelithiasis without evidence for acute cholecystitis. There is diffuse g allbladder wall thickening which is probably related to hepatocellular disease. 2. Cirrhotic appearing liver. No metastatic disease identified. 3. No renal obstruction. 4. No ascites.
== END 2024-12-07 23:59 | disposition home or self-care (01) ==
LOC: RAD 11-14 00:01 → ONCMED 11-16 10:06
PROVIDERS: Nurse Practitioner Family; PCP Family Medicine; Visit Provider Internal Medicine Medical Oncology
DX: Z53.9 Procedure and treatment not carried out, unspecified reason; C20 Malignant neoplasm of rectum; K80.20 Calculus of gallbladder without cholecystitis without obstruction; R76.8 Other specified abnormal immunological findings in serum
CPT/HCPCS: 36415; 76700; 80053; 82378; 82728; 83540; 83550; 85025

== ENCOUNTER 2024-11-17 14:09 | Outpatient (RCR) | payer MEDICAID, SELFPAY | END 2024-12-07 23:59 | disposition home or self-care (01) | LOC: SPT 14:09 | PROVIDERS: PCP Family Medicine; Visit Provider Orthopaedic Surgery | DX: M54.9 Dorsalgia, unspecified (principal); G89.29 Other chronic pain | CPT/HCPCS: 97110; 97161 ==

== ENCOUNTER 2025-01-08 05:00 | Outpatient (RCR) | payer MEDICAID, SELFPAY | END 2025-02-07 23:59 | disposition home or self-care (01) | LOC: SPT 05:00 | PROVIDERS: PCP Family Medicine; Visit Provider Orthopaedic Surgery | DX: M54.9 Dorsalgia, unspecified (principal); G89.29 Other chronic pain | CPT/HCPCS: 97530 ==

== ENCOUNTER 2025-01-25 14:05 | Outpatient (CLI) | payer MEDICAID, SELFPAY ==
--- NOTE | 2025-01-25 14:00 | XR_ITS ---
WS: [email or web address] SCREENING DEXA SCAN [employer] CLINICAL INFORMATION: M81.8 - Other osteoporosis without current pathological f... COMPARISON: None. FINDINGS: The L1-L4 bone mineral density measures 1.385 g/cm2. This corresponds to a T score score of 1.7 and Z score of 1.8. Left femoral neck bone mineral density measures 1.083 g/cm2. This corresponds to a T score of 0.6 and Z score of 1.0. Right femoral neck bone mineral density measures 1.080 g/cm2. This corresponds to a T score 0.6of and Z score of 0.9. Mean femoral neck bone mineral density measures 1.082 g/cm2. This corresponds to a T score of 0.6 and Z score of 1.0. XR/XR DEXA axial skeleton* [id number] IMPRESSION: Normal bone mineralization. Patient's FRAX calculated 10 year probability for major osteoporotic fracture i s 8.5% and osteoporotic hip fracture is 0.4%.
== END 2025-01-25 14:06 | disposition home or self-care (01) ==
LOC: RAD 14:05
PROVIDERS: PCP Family Medicine; Visit Provider Internal Medicine Rheumatology
DX: M81.8 Other osteoporosis without current pathological fracture (principal)
CPT/HCPCS: 77080

== ENCOUNTER 2025-02-08 05:00 | Outpatient (RCR) | payer MEDICAID, SELFPAY | END 2025-03-09 23:59 | disposition home or self-care (01) | LOC: SPT 05:00 | PROVIDERS: PCP Family Medicine; Visit Provider Orthopaedic Surgery | DX: M54.9 Dorsalgia, unspecified (principal); G89.29 Other chronic pain | CPT/HCPCS: 97110 ==

== ENCOUNTER → 2025-02-15 10:56 | Day surgery (SDC) | payer MEDICAID, SELFPAY ==
[2025-02-15 11:18] VITALS: BP 128/81; PULSE 70; RESP 18; TEMP 36.7; O2SAT 99; BMI 23.6
--- NOTE | 2025-02-15 11:32 | US_ITS ---
NOTE: Report was unsigned for reason: Order was edited. Original Signature date and time was: 02/15/25 @ 1256 WS: [email or web address] Abdominal ultrasound, limited. History: Evaluate for ascites. Comparison: None. All 4 quadrants are imaged by ultrasound to evaluate for ascites. There is no peritoneal fluid identified. [facility] US/US abdomen limited [id number] IMPRESSION: No peritoneal ascites. Paracentesis not performed.
== END ==
PROVIDERS: Radiology Diagnostic Radiology; PCP Family Medicine; Visit Provider Nurse Practitioner Family
PROC: (CPT 49082; principal; 2025-02-15 11:30)
DX: K70.31 Alcoholic cirrhosis of liver with ascites (principal); Z53.8 Procedure and treatment not carried out for other reasons
CPT/HCPCS: 49083; 76705

== ENCOUNTER 2025-02-16 11:30 | Oncology outpatient (recurring) (ONCR) | payer MEDICAID, SELFPAY ==
[2025-02-10] MEDS: iohexol 350 mg/mL 500 mL Btl (per mL) PO (12:21)
--- NOTE | 2025-02-10 12:45 | CT_ITS ---
WS: [email or web address] CT ABDOMEN AND PELVIS WITH CONTRAST HISTORY: Follow-up rectal cancer. TECHNIQUE: Imaging performed of the abdomen and pelvis with IV contrast. Single phase imaging of the abdomen. Coronal and sagittal reformats are submitted. All CT scans at [facility] use at least one of these dose optimization techniques: automated exposure control; mA and/or kV adjustment per patient size (includes targeted exams where dose is matched to clinical indication); or iterative reconstruction. IV CONTRAST: Omnipaque 350; 100 mL IV. Oral contrast: Yes. DLP: 286.80 mGy.cm COMPARISON: 05/31/2023 Lower thorax: 8 mm lymph node in the pericardiac fat on the RIGHT. No change since 05/31/2023. Heart size is normal. Lung bases are clear. No hiatal hernia. Liver/biliary system: Nodular surface of the liver consistent with cirrhosis. Recanalized umbilical vein. Upper liver is poorly visualized due to breathing motion artifact. No intrahepatic duct dilatation. Normal portal vein. Gallbladder: Cholelithiasis without acute cholecystitis. Pancreas: Normal size pancreas and pancreatic duct. No adjacent inflammation. Spleen: Normal size spleen. No mass or infarct. Adrenal glands: Normal. Right kidney: Normal. Left kidney: Normal. Aorta: Mild atherosclerosis with no aneurysm. Lymphadenopathy: No pathologically enlarged lymph nodes. There are a few very small shoddy retroperitoneal lymph nodes which are not pathologically enlarged. Free fluid: None. GI tract: Normally distended stomach. No small bowel obstruction. Normal appendix. Mild diffuse constipation. No obstructive pattern. No soft tissue mass noted within the sigmoid or rectum. Abdominal wall: Fat containing umbilical hernia. Pelvis: Uterus is midline. Both ovaries are identified and normal. No fat stranding or adenopathy. No ascites. Bones: Unremarkable. CT/CT abdomen pelvis w con* [id number] IMPRESSION: 1. No pathologically enlarged lymph nodes in the pelvis or retroperitoneum. 2. Cirrhotic liver with recanalized umbilical vein. 3. Lithiasis without acute cholecystitis. 4. Constipation. 5. No rectal mass identified. 6. No ascites.
[2025-02-10] MEDS: iohexol 350 mg/mL 500 mL Btl (per mL) IV (13:04)
[2025-02-16 11:46] LABS: Hematocrit 39.9 % (36-47); Hemoglobin 13.40 g/dL (11.27-16.99); Mean Corpuscular HGB Conc 33.6 g/dL (30-55); Mean Corpuscular Hemoglobin 29.6 pg (27-33); Mean Corpuscular Volume 88.1 fl (85-98); Nucleated Red Blood Cells % 0 %; Platelet Count 199 10^3/cmm (157-399); Red Blood Count 4.53 10^6/uL (3.85-5.65); White Blood Count 12.40 10^3/uL (3.29-11.43)
[2025-02-16 12:13] LABS: Carcinoembryonic Antigen 2.5 ng/mL (0.0-4.7)
[2025-02-16 12:24] LABS: Alanine Aminotransferase 7 U/L (0-33); Albumin Level 3.7 g/dL (3.5-5.2); Alkaline Phosphatase 98 U/L (35-105); Anion Gap 16.9 (5-19); Aspartate Amino Transferase 16 U/L (0-32); Blood Urea Nitrogen 7 mg/dL (6-20); Calcium 8.8 mg/dL (8.5-10.5); Carbon Dioxide 22 mmol/L (22-29); Chloride 104 mmol/L (98-107); Creatinine Clr Calc Pharmacy 81.7088; Globulin 2.7 g/dL (1.3-4.6); Glucose 111 mg/dL (65-115); Osmolality Calculated 287 mOsm/kg (285-295); Potassium 3.9 mmol/L (3.5-5.1); Sodium 139 mmol/L (136-145); Total Protein 6.4 g/dL (6.6-8.7)
== END 2025-03-09 23:59 | disposition home or self-care (01) ==
PROVIDERS: PCP Family Medicine; Visit Provider Nurse Practitioner Family
DX: C20 Malignant neoplasm of rectum (principal); Z53.9 Procedure and treatment not carried out, unspecified reason
CPT/HCPCS: 36415; 74177; 80053; 82378; 85025

== ENCOUNTER 2025-04-14 13:42 | Oncology outpatient (recurring) (ONCR) | payer MEDICAID, SELFPAY ==
--- NOTE | 2025-04-14 13:45 | MR_ITS ---
WS: [email or web address] MRI THORACIC SPINE noncontrast HISTORY: M54.6 - Pain in thoracic spine COMPARISON: None available. TECHNIQUE: Multiplanar sequences are performed in sagittal and axial planes. Mild cervical stenosis at C5-6 due to hypertrophic bone and osteophytes. No cord compression. No destructive bone lesions in the thoracic spine spine. Normal signal within the cord. T1-2: Normal. T2-3: Normal. T3-4: Normal. T4-5: Normal. T5-6: Mild foraminal stenosis. T6-7: Normal. T7-8: Mild facet joint arthritis. T8-9: Tiny central disc protrusion and mild facet arthritis. Mild foraminal stenosis. T9-10: Mild bilateral facet arthritis. T10-11: Small central to RIGHT paracentral disc protrusion. Mild facet arthritis and foraminal stenosis. T11-12: Normal. MR/MR thoracic spin wo con* [id number] IMPRESSION: 1. No high-grade central or foraminal stenosis. 2. No destructive bone lesions. 3. Mild facet joint arthritis as described above. 4. Mild foraminal stenosis at T8-9 and T10-11.
== END 2025-05-09 23:59 | disposition home or self-care (01) ==
LOC: RAD 13:42 → ONCMED 04-15 11:30
PROVIDERS: PCP Family Medicine; Visit Provider Nurse Practitioner Family
DX: C20 Malignant neoplasm of rectum (principal); Z53.9 Procedure and treatment not carried out, unspecified reason; R93.2 Abnormal findings on diagnostic imaging of liver and biliary tract; K59.00 Constipation, unspecified; K80.20 Calculus of gallbladder without cholecystitis without obstruction; I70.0 Atherosclerosis of aorta; K42.9 Umbilical hernia without obstruction or gangrene; M54.6 Pain in thoracic spine
CPT/HCPCS: 72146

== ENCOUNTER → 2025-04-27 10:59 | Day surgery (SDC) | payer MEDICAID, SELFPAY ==
--- NOTE | 2025-04-27 11:15 | US_ITS ---
WS: [email or web address] Abdominal ultrasound, limited. History: Evaluate for ascites. Comparison: None. All 4 quadrants are imaged by ultrasound to evaluate for ascites. There is a small amount of ascites in the RIGHT abdomen. Estimated at less than 100 cc. Patient has elected not to proceed with paracentesis today. If volume increases paracentesis can be performed at a later date. US/US abdomen lmt fluid [id number] IMPRESSION: Small volume ascites. No paracentesis performed today.
== END ==
LOC: GILAB 10:59
PROVIDERS: Radiology Diagnostic Radiology; PCP Family Medicine; Visit Provider Nurse Practitioner Family
DX: K74.60 Unspecified cirrhosis of liver (principal); R18.8 Other ascites
CPT/HCPCS: 49083; 76705

== ENCOUNTER 2025-06-09 11:00 | Oncology outpatient (recurring) (ONCR) | payer MEDICAID, SELFPAY ==
[2025-05-18 09:39] LABS: Hematocrit 39.5 % (36-47); Hemoglobin 13.40 g/dL (11.27-16.99); Mean Corpuscular HGB Conc 33.9 g/dL (30-55); Mean Corpuscular Hemoglobin 30.5 pg (27-33); Mean Corpuscular Volume 89.8 fl (85-98); Nucleated Red Blood Cells % 0 %; Platelet Count 213 10^3/cmm (157-399); Red Blood Count 4.40 10^6/uL (3.85-5.65); White Blood Count 9.43 10^3/uL (3.29-11.43)
[2025-05-18 10:17] LABS: Alanine Aminotransferase 6 U/L (0-33); Albumin Level 2.7 g/dL (3.5-5.2); Alkaline Phosphatase 139 U/L (35-105); Anion Gap 13.7 (5-19); Aspartate Amino Transferase 24 U/L (0-32); Blood Urea Nitrogen 10 mg/dL (6-20); Calcium 8.1 mg/dL (8.5-10.5); Carbon Dioxide 26 mmol/L (22-29); Chloride 104 mmol/L (98-107); Ferritin 79 ng/mL (15-150); Globulin 3.1 g/dL (1.3-4.6); Glucose 122 mg/dL (65-115); Iron 58 ug/dL (37-145); Osmolality Calculated 292 mOsm/kg (285-295); Sodium 141 mmol/L (136-145); Total Iron Binding Capacity 245 mcg/dl; Total Protein 5.8 g/dL (6.6-8.7); Unsaturated Iron Binding 187 ug/dL (112-347)
[2025-05-18 10:27] LABS: Potassium 2.7 mmol/L (3.5-5.1)
[2025-05-18 10:49] LABS: Carcinoembryonic Antigen 2.7 ng/mL (0.0-4.7)
[2025-06-09 11:29] LABS: Anion Gap 11.9 (5-19); Blood Urea Nitrogen 7 mg/dL (6-20); Calcium 8.3 mg/dL (8.5-10.5); Carbon Dioxide 24 mmol/L (22-29); Chloride 105 mmol/L (98-107); Glucose 98 mg/dL (65-115); Osmolality Calculated 284 mOsm/kg (285-295); Sodium 138 mmol/L (136-145)
[2025-06-09 11:31] LABS: Potassium 2.9 mmol/L (3.5-5.1)
== END 2025-06-09 23:59 | disposition home or self-care (01) ==
PROVIDERS: Internal Medicine Medical Oncology; Nurse Practitioner Family; PCP Family Medicine; Visit Provider Nurse Practitioner
DX: Z86.39 Personal history of other endocrine, nutritional and metabolic disease; Z53.9 Procedure and treatment not carried out, unspecified reason
CPT/HCPCS: 36415; 80048; 80053; 82378; 82728; 83540; 83550; 85025